=== PATIENT | female | born 1970 | race Caucasian/White ===

== ENCOUNTER → 2017-07-16 | Outpatient (CLI) | payer OTHER ==
--- NOTE | 2017-07-16 16:14 | WOMENS IMAGING REPORT ---
EXAM DESCRIPTION: TRANSVAGINAL ULTRASOUND COMPLETED DATE/TIME: 07/16/2017 2:52 pm REASON FOR STUDY: MENOMETRORRHAGIA; N92.1 N92.1 EXCESSIVE AND FREQUENT MENSTRUATION WITH IRREGULAR CYC COMPARISON: None. TECHNIQUE: Dynamic and static grayscale images acquired of the pelvis via transvaginal approach and recorded on PACS. Additional selected color Doppler and spectral images recorded. LIMITATIONS: None. FINDINGS: UTERUS: There is the suggestion of an arcurate versus septate uterus. ENDOMETRIAL STRIPE: No focal or generalized thickening. No masses. CERVIX: Several Nabothian cysts. RIGHT ADNEXUM: No abnormal masses. RIGHT OVARY AND DOPPLER: Normal size. No worrisome masses.Normal arterial vascular flow without evide nce for torsion. LEFT ADNEXUM: No abnormal masses. LEFT OVARY AND DOPPLER: Normal size. No worrisome masses. Normal arterial vascular flow without evide nce for torsion. FREE FLUID: None noted. OTHER: No other significant finding. MEASUREMENTS: UTERUS: 9.6 x 6.2 x 7.3 cm ENDOMETRIAL STRIPE: 11-14 mm RIGHT OVARY: 2.5 x 2.4 x 2.8 cm LEFT OVARY: 3.2 x 2.1 x 2.7 cm IMPRESSION: 1 Arcurate versus septate uterus suggested. MRI pelvis examination may be helpful. 2. Multiple Nabothian cysts in the cervix refion. TECHNICAL DOCUMENTATION: JOB ID: [id number] [employer]- All Rights Reserved Reading location - IP/workstation name: [email or web address]
== END ==
LOC: WI 13:45
PROVIDERS: ATTEND Nurse Practitioner Family
DX: N92.1 Excessive and frequent menstruation with irregular cycle (principal); N88.8 Other specified noninflammatory disorders of cervix uteri
CPT/HCPCS: 76830